=== PATIENT | female | born 1940 | race Caucasian/White ===

== ENCOUNTER 2019-05-23 14:57 | Outpatient (RCR) | payer MEDICARE, BC ==
[~2019-05-23 14:57] MED LIST: TOPROL XL50 MG PO
== END 2019-05-24 ==
LOC: OT 14:57
PROVIDERS: ATTEND Orthopaedic Surgery
DX: S42.222D 2-part displaced fracture of surgical neck of left humerus, subsequent encounter for fracture with routine healing (principal); M25.512 Pain in left shoulder; M25.612 Stiffness of left shoulder, not elsewhere classified; R53.1 Weakness

== ENCOUNTER 2019-06-22 10:00 | Outpatient (RCR) | payer MEDICARE, BC | END 2019-06-23 | LOC: OT 10:00 | PROVIDERS: ATTEND Orthopaedic Surgery | DX: S42.222D 2-part displaced fracture of surgical neck of left humerus, subsequent encounter for fracture with routine healing (principal) ==